=== PATIENT | female | born 1970 | race Caucasian/White ===

== ENCOUNTER 2021-03-17 02:45 | Outpatient (CLI) | payer BC, SELFPAY ==
[2021-03-18 16:47] LABS: Estradiol 57 pg/mL (See Note)
== END 2021-03-17 02:46 | disposition home or self-care (01) ==
PROVIDERS: Visit Provider Internal Medicine Medical Oncology
DX: C50.912 Malignant neoplasm of unspecified site of left female breast (principal)
CPT/HCPCS: 36415; 82670; 83001; 83002